=== PATIENT | female | born 1940 | race Caucasian/White ===

== ENCOUNTER 2024-03-14 20:14 | Emergency (ER) | payer OTHER, MEDICARE ==
[~2024-03-14] VITALS: Ht 157.5 cm; Wt 50.0 kg
[~2024-03-14 20:14] MED LIST: ASPIRIN EC81 MG PO; CALCIUM500 M1 PO; DIAZEPAM5 MG PO; DILANTIN100 MG PO; MECLIZINE HCL25 MG PO; MULTIVITAMINS1 EAC7 PO; NORCO 5-325 TA1 EACH PO; OMEPRAZOLE20 MG PO; PHENOBARBITAL60 MG PO; PRAVASTATIN SOD40 MG PO; TRANSDERM-SCOP1 EA TD; VITAMIN C1000 M1 PO; VITAMIN D1000 UNIT PO; VITAMIN E400 UNI1 PO; ZOFRAN ODT4 MG PO
[2024-03-14] MEDS ORDERED: DIPHTH,PERTUSS(ACELL),TET VAC 0.5 ML SYRINGE IM ONE (20:45)
[2024-03-14 22:03] VITALS: BP 157/73
== END 2024-03-14 22:03 | disposition home or self-care (01) ==
LOC: ED 20:14
DX: S01.111A Laceration without foreign body of right eyelid and periocular area, initial encounter (principal); S80.02XA Contusion of left knee, initial encounter; G40.909 Epilepsy, unspecified, not intractable, without status epilepticus; Z79.899 Other long term (current) drug therapy; W01.110A Fall on same level from slipping, tripping and stumbling with subsequent striking against sharp glass, initial encounter
CPT/HCPCS: 12011; 70450; 70486; 72125; 73560; 90471; 90715; 99284-25

== ENCOUNTER 2024-12-21 07:17 | Emergency (ER) | payer MEDICARE, OTHER ==
[~2024-12-21] VITALS: Ht 157.5 cm; Wt 52.0 kg
[2024-12-21 08:17] LABS: BASOPHILS 0.2 % (0.1-1.2); EOSINOPHILS 0.2 % (0.7-5.8); LYMPHOCYTES 5.9 % (19.3-51.7); MCH 32.1 PG (25.6-32.2); MCHC 33.4 g/dL (32.2-35.5); MCV 95.9 fL (79.4-94.8); MONOCYTES 5.7 % (4.7-12.5); NEUTROPHILS 87.3 % (34.0-71.1); RBC 4.43 M/uL (3.93-5.22)
[2024-12-21 08:40] LABS: ALT (SGPT) 19 U/L (14-59); AST (SGOT) 25 U/L (15-37); GLOMERULAR FILTRATION RATE,EST 60 mL/min (>60); PROTEIN, TOTAL 6.6 g/dL (6.4-8.2); UREA NITROGEN 20 mg/dL (7-18)
[2024-12-21] MEDS ORDERED: SODIUM CHLORIDE 0.9% 500 ML IV PRN (09:15)
[2024-12-21 09:36] LABS: BLOOD/HGB, URINE NEGATIVE (Negative); KETONE, URINE NEGATIVE (Negative); LEUK ESTERASE, URINE SMALL (negative); NITRITE, URINE NEGATIVE (negative)
[2024-12-21 09:46] LABS: BACTERIA, URINE RARE /hpf (negative); CASTS, URINE NONE SEEN \\lpf; CRYSTALS, URINE NONE SEEN (0-1+); EPITHELIAL CELLS, URINE SQUAMOUS 1+ /lpf (0-1+); REFLEX CULTURE, URINE Yes (No)
[2024-12-21] MEDS ORDERED: LIDODERM1 EACH TOP (10:28)
[2024-12-21] MEDS ORDERED: MACROBID 100 M100 MG PO (10:28)
[2024-12-21] MEDS ORDERED: ACETAMINOPHEN 500 MG TAB PO ONE (10:45)
[2024-12-21] MEDS ORDERED: LIDOCAINE HCL 4% 1 EACH PATCH TD ONE (10:45)
[2024-12-21 10:56] VITALS: BP 135/58
[2024-12-21] MEDS ORDERED: LIDOCAINE PATCH REMOVAL 1 EA TD SCH (21:00)
--- NOTE | 2024-12-21 22:18 | EKG ---
[facility] [address] [facility] [place] [address] Signed Normal sinus rhythm Normal ECG When compared with ECG of 18-AUG-2023 01:27, Vent. rate has decreased BY [address] no longer depressed in Lateral leads Confirmed by Spencer Barragan MD () on 12/21/2024 10:18:41 PM Electronically Signed By: SPENCER BARRAGAN MD 12/21/24 2218 PATIENT NAME: CASEJERALD Electrocardiogram DATE OF : 36 PHYSICIAN: SPENCER BARRAGAN MD REPORT #: [id number] REPORT IS CONFIDENTIAL AND NOT TO BE RELEASED WITHOUT AUTHORIZATION
== END 2024-12-21 10:56 | disposition home or self-care (01) ==
LOC: ED 07:17
PROVIDERS: Emergency Medicine
DX: S32.018A Other fracture of first lumbar vertebra, initial encounter for closed fracture (principal); N39.0 Urinary tract infection, site not specified; R91.8 Other nonspecific abnormal finding of lung field; E04.1 Nontoxic single thyroid nodule; W18.30XA Fall on same level, unspecified, initial encounter; Z79.899 Other long term (current) drug therapy
CPT/HCPCS: 36415; 70450; 72125; 72128; 72131; 80053; 80185; 81001; 85025; 87088; 93005; 93010; 99284-25; A9270

== ENCOUNTER 2024-12-25 08:36 | Emergency (ER) | payer MEDICARE, OTHER ==
[~2024-12-25] VITALS: Ht 157.5 cm; Wt 0.3 kg
[~2024-12-25 08:36] MED LIST changes: +LIDODERM1 EACH TOP; +MACROBID 100 M100 MG PO
--- OUTSIDE RECORDS SUMMARY | 2024-12-25 08:43 | XMS ---
PreManage Notification: JERALD RAMOS [employer] Closer Events No recent Security Events currently on file CRITERIA MET - [facility] - 2 Visits in 30 Days CARE PROVIDERS There are no care providers on record at this time. Anne has no Care Guidelines for this patient. [facility] (12 MO.) [facility] NOTE: Visits indicate total known visits. 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 - Other nonspecific abnormal finding of lung field - Urinary tract infection, site not specified 03/14/2024 20:14 [facility] [place] TYPE: Emergency COMPLAINT: - FALL DIAGNOSES: - Contusion of left knee, initial encounter - Epilepsy, unspecified, not intractable, without status epilepticus - Fall on same level from slipping, tripping and stumbling with subsequent striking against sharp glass, initial encounter - Laceration without foreign body of right eyelid and periocular area, initial encounter - 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
[2024-12-25 09:05] LABS: BASOPHILS 0.1 % (0.1-1.2); EOSINOPHILS 0.6 % (0.7-5.8); LYMPHOCYTES 12.5 % (19.3-51.7); MCH 32.3 PG (25.6-32.2); MCHC 34.6 g/dL (32.2-35.5); MCV 93.4 fL (79.4-94.8); MONOCYTES 6.7 % (4.7-12.5); NEUTROPHILS 79.2 % (34.0-71.1); RBC 4.68 M/uL (3.93-5.22)
[2024-12-25 09:21] LABS: ALT (SGPT) 36.0 U/L (14-59); AST (SGOT) 34.0 U/L (15-37); GLOMERULAR FILTRATION RATE,EST 67.0 mL/min (>60); PROTEIN, TOTAL 7.3 g/dL (6.4-8.2); UREA NITROGEN 9.0 mg/dL (7-18)
[2024-12-25 10:48] LABS: BLOOD/HGB, URINE NEGATIVE (Negative); KETONE, URINE NEGATIVE (Negative); LEUK ESTERASE, URINE NEGATIVE (negative); NITRITE, URINE NEGATIVE (negative)
[2024-12-25] MEDS ORDERED: MIRALAX17 GM PO (11:30)
[2024-12-25] MEDS ORDERED: MINERAL OIL 133 ML BTL PR ONE (11:45)
[2024-12-25] MEDS ORDERED: LACTULOSE 20 GM/30 ML CUP PO ONE (11:45)
[2024-12-25] MEDS ORDERED: LACTULOSE 20 GM/30 ML CUP ONE (11:58)
[2024-12-25 15:53] VITALS: BP 163/71
== END 2024-12-25 15:55 | disposition home or self-care (01) ==
LOC: ED 08:36
PROVIDERS: Emergency Medicine
DX: K59.00 Constipation, unspecified (principal); G40.909 Epilepsy, unspecified, not intractable, without status epilepticus; Z79.899 Other long term (current) drug therapy
CPT/HCPCS: 36415; 74177; 80053; 81003; 83605; 83690; 85025; 99284-25; Q9967